=== PATIENT | female | born 1955 | race Hispanic/Latino ===

== ENCOUNTER 2018-10-19 01:59 | Inpatient (IN) | payer MEDICARE, SELFPAY ==
[2018-10-19] MEDS ORDERED: Promethazine HCl 25 MG/ML VIAL IM PRN ×3 (05:03→13:10)
[2018-10-19] MEDS ORDERED: hydrALAZINE 20 MG/ML VIAL SLOW IVP PRN ×2 (05:03→13:10)
[2018-10-19] MEDS ORDERED: Dextrose 50% Abboject 50 ML SYRINGE SLOW IVP PRN ×2 (05:03→13:10)
[2018-10-19] MEDS ORDERED: Dextrose 5% in Water 1,000 ML IV PRN ×2 (05:03→13:10)
[2018-10-19] MEDS ORDERED: Mag-Al 1200 mg/1200 mg/30 ML UDCUP PO PRN ×2 (05:03→13:10)
[2018-10-19] MEDS ORDERED: Ondansetron PF 4 MG/2 ML Vial IVP PRN ×2 (05:03→13:10)
[2018-10-19] MEDS ORDERED: Calcium Carbonate 500 MG ChewTAB PO PRN ×2 (05:03→13:10)
--- NOTE | 2018-10-19 05:23 | HP ---
CHIEF COMPLAINT: Right upper quadrant abdominal pain. HISTORY OF PRESENT ILLNESS: This is a 63-year-old female with a 24-hour history of severe epigastric and right upper quadrant pain radiating to back, associated with nausea, no vomiting, subjective fever. PAST MEDICAL HISTORY: Obesity and hypertension. PAST SURGICAL HISTORY: None. ALLERGIES: NO KNOWN DRUG ALLERGIES. MEDICATIONS: She takes a blood pressure medicine and she takes something for gastritis. SOCIAL HISTORY: She is , unemployed. No tobacco. No alcohol. Speaks Chinese. FAMILY HISTORY: Noncontributory. PHYSICAL EXAMINATION: GENERAL: She is afebrile, pulse 75, blood pressure 135/56. GENERAL: She is an obese female, in no apparent distress. HEENT: No jaundice. LUNGS: Clear. HEART: Regular rate and rhythm. ABDOMEN: Obese. She is very tender in the epigastrium and right upper quadrant with a positive Doe sign. EXTREMITIES: Unremarkable. LABORATORY DATA: White count is 11, H and H 14 and 45, platelet count 189. Her electrolytes, CO2 is a little low at 20, glucose elevated at 177. LFTs are normal. Lipase normal. She had an ultrasound of the abdomen showing an impacted gallstone at the neck of the gallbladder with some mild wall thickening. There is partial calcification of the gallbladder wall. She does have some dilatation of the common bile duct at 11 mm. ASSESSMENT: Acute cholecystitis. PLAN: Recommend admission, antibiotics, laparoscopic cholecystectomy with cholangiogram. Job ID: [id number]
[2018-10-19 05:56] VITALS: BMI 46.8
[2018-10-19] MEDS ORDERED: Prevnar 13-Val Conj/PF 0.5 ML SYRINGE IM ONE (06:15)
[2018-10-19] MEDS: Morphine 2 MG/ML SYRINGE SLOW IVP PRN ×2 (06:26→19:05)
[2018-10-19] MEDS: Sodium Chloride 0.9% 1,000 ML IV SCH ×2 (06:26→14:03)
[2018-10-19] MEDS: Piperacillin/Tazobactam 3.375 GM in Sodium Chloride 0.9% 100 ML IVPB SCH ×3 (06:26→17:24)
[2018-10-19] MEDS: Famotidine/PF 20 mg/2ml Vial SLOW IVP SCH ×2 (08:13→20:33)
[2018-10-19] MEDS: Famotidine 20 MG TAB PO SCH ×2 (08:16→20:35)
[2018-10-19] MEDS ORDERED: Fentanyl 100 MCG/2 ML VIAL ONE ×2 (08:39→11:18)
[2018-10-19] MEDS ORDERED: HYDROmorphone 0.5 MG/0.5 ML SYRINGE ONE (08:40)
[2018-10-19] MEDS ORDERED: Iothalamate Meglumine 60% 50 ML VIAL FS ONE (08:58)
[2018-10-19] MEDS ORDERED: Bupivacaine/Epinephrine 0.25% 30 ML VIAL ONE (08:58)
[2018-10-19] MEDS ORDERED: Morphine 2 MG/ML SYRINGE ONE (09:34)
[2018-10-19] MEDS ORDERED: Sodium Chloride 0.9% 100 ML ONE (11:25)
[2018-10-19] MEDS ORDERED: Piperacillin/Tazobactam 3.375 GM VIAL ONE (11:25)
[2018-10-19] MEDS ORDERED: Ondansetron HCl/PF 4 MG/2 ML Vial IVP PRN (12:56)
[2018-10-19] MEDS ORDERED: HYDROmorphone 2 MG/ML VIAL SLOW IVP PRN (12:56)
[2018-10-19] MEDS ORDERED: PACU-Morphine 4MG/ML VIAL SLOW IVP PRN (12:56)
[2018-10-19] MEDS ORDERED: Promethazine HCl 25 MG/ML VIAL SLOW IVP PRN (12:56)
[2018-10-19] MEDS ORDERED: Morphine 4 MG/ML VIAL SLOW IVP PRN (13:10)
[2018-10-19] MEDS ORDERED: HYDROcodone/Acetaminophen 10/325 mg Tablet PO PRN ×2 (13:10)
[2018-10-19] MEDS ORDERED: Rocuronium Bromide 10 MG/ML (10ML VIAL) ONE (14:20)
[2018-10-19] MEDS ORDERED: Ketorolac Tromethamine 30 MG/ML VIAL ONE (14:20)
[2018-10-19] MEDS ORDERED: Ondansetron PF 4 MG/2 ML Vial ONE (14:20)
[2018-10-19] MEDS ORDERED: Lidocaine 1% PF 5 ML VIAL ONE (14:20)
[2018-10-19] MEDS ORDERED: Glycopyrrolate 0.2 MG/ML 5 ML SYRINGE ONE (14:20)
[2018-10-19] MEDS ORDERED: ePHEDrine 50 MG/ML VIAL ONE (14:20)
[2018-10-19] MEDS ORDERED: PROPOFOL 200 MG/20 ML VIAL ONE (14:20)
--- NOTE | 2018-10-19 16:01 | RAD ---
EXAM: Intraoperative cholangiogram INDICATIONS: Laparoscopic cholecystectomy. Operative cholangiogram COMPARISON: None. FINDINGS: 3 images presented. Opacification common duct. There is filling defect in the mid common duct which cannot be further del ineated. Retained stone cannot be excluded. The common duct appears mildly dilated.
[2018-10-19] MEDS: Ketorolac Tromethamine 30 MG/ML VIAL IVP SCH (17:24)
[2018-10-19] MEDS ORDERED: Piperacillin/Tazobactam 3.375 GM in Sodium Chloride 0.9% 100 ML IVPB SCH (18:00)
[2018-10-19] MEDS ORDERED: Famotidine 20 MG TAB PO SCH (21:00)
[2018-10-19] MEDS ORDERED: Famotidine/PF 20 mg/2ml Vial SLOW IVP SCH (21:00)
[2018-10-20] MEDS: Ketorolac Tromethamine 30 MG/ML VIAL IVP SCH ×5 (00:08→23:17)
[2018-10-20] MEDS: Piperacillin/Tazobactam 3.375 GM in Sodium Chloride 0.9% 100 ML IVPB SCH ×5 (00:08→23:17)
[2018-10-20] MEDS: Sodium Chloride 0.9% 1,000 ML IV SCH ×4 (00:09→20:41)
[2018-10-20 05:27] LABS: #Lymphocytes 1.1 thou/uL (1.20-3.40); #Monocytes 0.4 thou/uL (0.11-0.59); %Basophils 0.2 % (0.0-1.0); %Eosinophils 0.5 % (0.0-10.0); %Lymphocytes 16.6 % (21.0-51.0); %Monocytes 6.8 % (0.0-10.0); %Neutrophils 75.9 % (42.0-75.0); Hemoglobin 12.9 g/dL (12.0-16.0); Mean Corpuscular Hemoglobin 29.2 pg (27.0-31.0); Mean Corpuscular Volume 88.5 fL (78.0-98.0); Mean Platelet Volume 9.6 fL (7.4-10.4); Platelet Count 148 thou/uL (130-400); RBC Distribution Width 12.9 % (11.5-14.5); Red Blood Cell (RBC) Count 4.42 mill/uL (4.20-5.40); White Blood Cell (WBC) Count 6.6 thou/uL (4.8-10.8)
[2018-10-20 05:50] LABS: ALT (SGPT) 40 U/L (8-55); AST (SGOT) 66 U/L (5-34); Albumin 3.4 g/dL (3.4-4.8); Alkaline Phosphatase 84 U/L (40-150); Anion Gap 10 mmol/L (10-20); BUN (Urea Nitrogen) 8 mg/dL (9.8-20.1); Bilirubin, Total 0.6 mg/dL (0.2-1.2); Calc. Creatinine Clearance 141 mL/min (70-130); Calcium 8.2 mg/dL (7.8-10.44); Carbon Dioxide 24 mmol/L (23-31); Chloride 105 mmol/L (98-107); Estimated GFR-MDRD 80; Globulin 2.9 g/dL (2.4-3.5); Glucose 126 mg/dL (80-115); Lipase 5 U/L (8-78); Potassium 3.5 mmol/L (3.5-5.1); Protein, Total 6.3 g/dL (6.0-8.3); Sodium 135 mmol/L (136-145)
[2018-10-20] MEDS: Enoxaparin Sodium 40 MG/0.4 ML SYRINGE SC SCH (08:29)
[2018-10-20] MEDS: Famotidine 20 MG TAB PO SCH ×2 (08:29→20:40)
[2018-10-20] MEDS: Famotidine/PF 20 mg/2ml Vial SLOW IVP SCH ×2 (08:38→20:42)
--- NOTE | 2018-10-20 09:51 | PRG ---
DATE OF SERVICE: 10/20/2018 SUBJECTIVE: The patient reports she is still having quite a bit of pain in the right upper quadrant, but it is getting better mainly around the tube. No nausea or vomiting. In fact, she is hungry and wants her diet advanced. OBJECTIVE: VITAL SIGNS: On exam, temperature 99.6, pulse 83, and blood pressure 122/75. GENERAL: She is awake, alert. HEENT: No jaundice. LUNGS: Clear. ABDOMEN: Soft and nondistended, postop tender. LABORATORY DATA: Her glucose is 126. AST is 66. Rest of LFTs are normal. ASSESSMENT: Doing well. PLAN: Advance diet. Probably go home tomorrow. Job ID: [id number]
[2018-10-21] MEDS: Ketorolac Tromethamine 30 MG/ML VIAL IVP SCH ×2 (06:10→12:26)
[2018-10-21] MEDS: Piperacillin/Tazobactam 3.375 GM in Sodium Chloride 0.9% 100 ML IVPB SCH ×2 (06:11→12:26)
[2018-10-21] MEDS ORDERED: metFORMIN 500 MG TAB PO SCH (08:00)
[2018-10-21] MEDS ORDERED: Lisinopril 10 MG TAB PO SCH (09:00)
[2018-10-21] MEDS: Enoxaparin Sodium 40 MG/0.4 ML SYRINGE SC SCH (09:20)
[2018-10-21] MEDS: Famotidine 20 MG TAB PO SCH (09:20)
[2018-10-21] MEDS: Sodium Chloride 0.9% 1,000 ML IV SCH (09:26)
[2018-10-21] MEDS: Famotidine/PF 20 mg/2ml Vial SLOW IVP SCH (09:27)
--- NOTE | 2018-10-21 10:48 | OP ---
DATE OF PROCEDURE: 10/19/2018 PREOPERATIVE DIAGNOSIS: Acute cholecystitis with enlarged common bile duct. PROCEDURE PERFORMED: Laparoscopic cholecystectomy with intraoperative cholangiogram. INDICATIONS: A 63-year-old female with a 2-day history of right upper quadrant pain. Ultrasound showing multiple cholelithiasis, thickened gallbladder wall, and an enlarged common duct. She had normal preoperative liver functions. FINDINGS: She had acute cholecystitis. She had very foul-smelling purulent biliary fluid within the gallbladder, multiple large stones and large cystic duct on cholangiogram and a dilated common duct. There was flow into the duodenum without a definite filling defect, but very slow trickle into the duodenum. DESCRIPTION OF PROCEDURE: After informed consent was obtained, the patient was taken to the operating room and given general endotracheal anesthesia, placed in supine position. Abdomen was prepped and draped in usual fashion. Local anesthesia infiltrated subcutaneously and deep. An upper midline incision was performed. She was morbidly obese. Subcu divided sharply. The fascia was grasped and 2 stay sutures of 0 Vicryl placed through side of midline. Midline incised. Digital palpation revealed no local adhesions. A blunt 12 mm trocar inserted. Pneumoperitoneum was created to a pressure of 15 mmHg. A 0 degree laparoscope was inserted under direct vision. Three 5 mm ports were placed subcostally. The gallbladder was very distended and encased with omentum. The omentum was taken down. The gallbladder was punctured and 80 mL of purulent foul smelling bile removed from the gallbladder. This decompressed the gallbladder, so it could be grasped. It was advanced superiorly and dissection was performed to expose the cystic duct and cystic artery in critical view. The cystic duct was dilated. A clip was placed at the base of the gallbladder. On the cystic duct, an incision made. The Arrow cholangiocatheter inserted. Intraoperative cholangiogram performed utilizing fluoroscopy showing enlarged common bile duct. There was some trickle into the duodenum. I could not define a definite filling defect. The catheter removed. The duct was triply ligated and divided. The artery triply ligated and divided. The gallbladder removed from the fossa utilizing electrocautery. It was placed in endosac, removed from the abdomen in the endosac. Hemostasis achieved with electrocautery. A 19-Faroese EZEKIEL drain was then inserted and placed in the subhepatic space, brought out through the right lateral incision. Hemostasis assured. Trocars and retractors removed. The fascia was closed with interrupted 2-0 Vicryl [id number]. Subcu irrigated. Subcu closed with interrupted 3-0 Vicryl suture and the skin closed with interrupted 4-0 Rapide. Dermabond applied. The patient tolerated the procedure well, transferred to Recovery in good condition. Sponge and needle count verified correct x2. Job ID: [id number]
[2018-10-21 11:26] VITALS: BP 152/85; TEMP 97.7
--- NOTE | 2018-10-21 15:05 | DIS ---
DATE OF ADMISSION: 10/19/2018 DATE OF DISCHARGE: 10/21/2018 DISCHARGE DIAGNOSES: 1. Acute cholecystitis. 2. Morbid obesity. 3. Hypertension. PROCEDURES DURING ADMISSION: Laparoscopic cholecystectomy with intraoperative cholangiogram. HOSPITAL COURSE: The patient was admitted, taken to the operating room, where she underwent laparoscopic cholecystectomy. She was found to have acute cholecystitis. The cholangiogram had some slow filling, but otherwise did fill the duodenum. Postoperatively, she did well. Liver function tests were not bumped. Her pain is controlled on p.o. medications. She is discharged home on hydrocodone and Zofran. She will follow up with me in 2 weeks. Job ID: [id number]
== END 2018-10-21 13:56 | disposition home or self-care (01) | DRG 418 ==
LOC: ERS 01:59 → SURG B 05:03
PROVIDERS: ADMIT Surgery; ATTEND Surgery
PROC: 0FT44ZZ Resection of Gallbladder, Percutaneous Endoscopic Approach (ICD-10-PCS; principal; 2018-10-19)
PROC: BF00YZZ Plain Radiography of Bile Ducts using Other Contrast (ICD-10-PCS; 2018-10-19)
DX: K80.00 Calculus of gallbladder with acute cholecystitis without obstruction (principal); Z68.42 Body mass index [BMI] 45.0-49.9, adult; I10 Essential (primary) hypertension; E66.01 Morbid (severe) obesity due to excess calories; Z79.899 Other long term (current) drug therapy
CPT/HCPCS: 36415; 47532; 80053; 83690; 85025; 87070; 87077; 87186; 87205; 88304; 93005; J1170; J1610; J1885; J2001; J2270; J2405; J2543; J2704; J3010; J3490; S0028

== ENCOUNTER 2020-07-09 10:07 | Outpatient (CLI) | payer MEDICARE | END 2020-07-09 10:08 | disposition home or self-care (01) | LOC: BICMAMMO 10:07 | PROVIDERS: ATTEND Surgery | DX: Z12.31 Encounter for screening mammogram for malignant neoplasm of breast (principal); N64.89 Other specified disorders of breast | CPT/HCPCS: 77063; 77067 ==

== ENCOUNTER 2020-07-26 10:00 | Outpatient (CLI) | payer MEDICARE | END 2020-07-26 10:01 | disposition home or self-care (01) | LOC: BICMAMMO 10:00 | PROVIDERS: ATTEND Surgery | DX: R92.2 Inconclusive mammogram (principal) | CPT/HCPCS: 77065; G0279 ==

== ENCOUNTER 2020-12-24 12:56 | Outpatient (CLI) | payer MEDICARE ==
[2020-12-24 15:18] LABS: ALT (SGPT) 31 U/L (8-55); AST (SGOT) 36 U/L (5-34); Albumin 4.3 g/dL (3.4-4.8); Alkaline Phosphatase 89 U/L (40-110); Anion Gap 15 mmol/L (10-20); BUN (Urea Nitrogen) 15 mg/dL (9.8-20.1); Bilirubin, Total 0.9 mg/dL (0.2-1.2); Calc. Creatinine Clearance 0 mL/min (70-130); Calcium 9.2 mg/dL (7.8-10.44); Carbon Dioxide 27 mmol/L (23-31); Chloride 100 mmol/L (98-107); Globulin 3.2 g/dL (2.4-3.5); Glucose 138 mg/dL (80-115); Potassium 3.6 mmol/L (3.5-5.1); Protein, Total 7.5 g/dL (5.8-8.1); Sodium 138 mmol/L (136-145)
[2020-12-24 15:38] LABS: #Eosinphils 0.1 10x3/uL (0.0-0.5); #Monocytes 0.5 10x3/uL (0.0-1.1); #Neutrophils 3.4 10x3/uL (1.5-8.4); %Basophils 0.4 % (0.0-2.0); %Eosinophils 1.8 % (0.0-6.0); %Lymphocytes 30.2 % (18.0-47.0); %Monocytes 8.4 % (0.0-10.0); %Neutrophils 58.8 % (40.0-75.0); Hemoglobin 14.6 g/dL (12.0-15.5); Mean Corpuscular HGB CONC 31.5 g/dL (32.0-36.0); Mean Corpuscular Hemoglobin 27.4 pg (27.0-33.0); Mean Corpuscular Volume 86.9 fl (81.6-98.3); Mean Platelet Volume 12.4 fl (7.4-10.4); Platelet Count 194 10x3/uL (150-450); RBC Distribution Width 13.2 % (11.5-14.5); Red Blood Cell (RBC) Count 5.33 10x6/uL (3.90-5.03); White Blood Cell (WBC) Count 5.7 10x3/uL (3.5-10.5)
[2020-12-25 16:38] LABS: SARS-CoV-2 PCR by NAA Not Detected (NotDetected)
== END 2020-12-24 12:57 | disposition home or self-care (01) ==
LOC: LABBT 12:56
PROVIDERS: ATTEND Surgery
DX: Z01.818 Encounter for other preprocedural examination (principal); K43.2 Incisional hernia without obstruction or gangrene; Z20.822 Contact with and (suspected) exposure to COVID-19
CPT/HCPCS: 80053; 85025; 93005; U0003; U0005; 93010

== ENCOUNTER 2020-12-27 09:54 | Day surgery (SDC) | payer MEDICARE ==
[2020-12-24 10:46] VITALS: BMI 47.2
[2020-12-27] MEDS ORDERED: ceFAZolin 2 GM/DEX 5% 100 ML BAG ONE (10:24)
[2020-12-27] MEDS ORDERED: Bupivacaine 0.25% HCL 30 ML VIAL ONE (12:25)
[2020-12-27] MEDS ORDERED: Lidocaine 1% w/Epinephrine 1:100K 20 ML VIAL ONE (12:25)
[2020-12-27] MEDS ORDERED: Fentanyl 100 MCG/2 ML VIAL ONE ×3 (12:28→14:52)
[2020-12-27] MEDS ORDERED: Dexamethasone 20 MG/5 ML VIAL ONE (12:36)
[2020-12-27] MEDS ORDERED: PHENYLEPHRINE-NS 100 MCG/ML 10 ML SYRINGE ONE (12:36)
[2020-12-27] MEDS ORDERED: Esmolol 100 MG/10 ML VIAL ONE (12:36)
[2020-12-27] MEDS ORDERED: Glycopyrrolate 0.2 MG/ML 5 ML SYRINGE ONE (12:36)
[2020-12-27] MEDS ORDERED: Rocuronium Bromide 10 MG/ML (10ML VIAL) ONE (12:36)
[2020-12-27] MEDS ORDERED: PROPOFOL 200 MG/20 ML VIAL ONE (12:36)
[2020-12-27] MEDS ORDERED: Ondansetron PF 4 MG/2 ML Vial ONE (12:36)
[2020-12-27] MEDS ORDERED: Lidocaine 1% PF 5 ML VIAL ONE (12:36)
[2020-12-27] MEDS ORDERED: ePHEDrine 50 MG/ML VIAL ONE (12:36)
[2020-12-27] MEDS ORDERED: HYDROcodone/Acetaminophen 5/325 mg Tablet ONE (16:18)
== END 2020-12-27 17:50 | disposition home or self-care (01) ==
LOC: SDC 09:54
PROVIDERS: ATTEND Surgery
PROC: 0WUF4JZ Supplement Abdominal Wall with Synthetic Substitute, Percutaneous Endoscopic Approach (ICD-10-PCS; principal; 2020-12-27)
DX: K43.2 Incisional hernia without obstruction or gangrene (principal); K66.0 Peritoneal adhesions (postprocedural) (postinfection); I10 Essential (primary) hypertension; E66.01 Morbid (severe) obesity due to excess calories; Z68.42 Body mass index [BMI] 45.0-49.9, adult; Z79.84 Long term (current) use of oral hypoglycemic drugs; Z79.899 Other long term (current) drug therapy
CPT/HCPCS: C1713; C1781; J1100; J2405; J2704; J3010; J3490; S0020

== ENCOUNTER 2021-07-21 18:08 | Outpatient (CLI) | payer MEDICARE | END 2021-07-21 18:09 | disposition home or self-care (01) | LOC: LABBT 18:08 | PROVIDERS: ATTEND Internal Medicine Gastroenterology | DX: Z20.822 Contact with and (suspected) exposure to COVID-19 (principal) | CPT/HCPCS: U0003; U0005 ==

== ENCOUNTER 2021-07-25 06:17 | Day surgery (SDC) | payer MEDICARE ==
[2021-07-20 11:12] VITALS: BMI 45.3
[2021-07-25] MEDS ORDERED: fentaNYL Citrate/PF 100 MCG/2 ML SYRINGE ONE (07:52)
== END 2021-07-25 09:49 | disposition home or self-care (01) ==
LOC: SDC 06:17
PROVIDERS: ATTEND Internal Medicine Gastroenterology
PROC: 0DB78ZX Excision of Stomach, Pylorus, Via Natural or Artificial Opening Endoscopic, Diagnostic (ICD-10-PCS; principal; 2021-07-25)
PROC: 0DJD8ZZ Inspection of Lower Intestinal Tract, Via Natural or Artificial Opening Endoscopic (ICD-10-PCS; 2021-07-25)
DX: Z12.11 Encounter for screening for malignant neoplasm of colon (principal); K31.89 Other diseases of stomach and duodenum; K29.50 Unspecified chronic gastritis without bleeding; K21.00 Gastro-esophageal reflux disease with esophagitis, without bleeding; K57.30 Diverticulosis of large intestine without perforation or abscess without bleeding; K64.4 Residual hemorrhoidal skin tags; I10 Essential (primary) hypertension; E66.01 Morbid (severe) obesity due to excess calories; Z68.42 Body mass index [BMI] 45.0-49.9, adult; Z79.84 Long term (current) use of oral hypoglycemic drugs; Z79.899 Other long term (current) drug therapy
CPT/HCPCS: 43239; G0121; 88305; 88342